=== PATIENT | male | born 1945 | race Caucasian/White ===

== ENCOUNTER 2019-03-15 12:37 | Outpatient (CLI) | payer OTHER | END 2019-03-15 23:59 | disposition home or self-care (01) | LOC: CARD 12:37 | PROVIDERS: ATTEND Nurse Practitioner Family | DX: F03.90 Unspecified dementia, unspecified severity, without behavioral disturbance, psychotic disturbance, mood disturbance, and anxiety (principal); E11.9 Type 2 diabetes mellitus without complications; G47.33 Obstructive sleep apnea (adult) (pediatric); G20 Parkinson's disease | CPT/HCPCS: 95819 ==